=== PATIENT | female | born 1955 | race Caucasian/White ===

== ENCOUNTER 2019-12-03 17:58 | Inpatient (IN) | payer MEDICARE ==
--- NOTE | 2019-12-03 19:04 | RAD ---
RIGHT WRIST THREE VIEW: History: Injury, fall. Comparison: None. FINDINGS: Intraarticular radius fracture with mild dorsal angulation and impaction. Mild widening at the scapho lunate interval. IMPRESSION: Mildly dorsally angulated and impacted intraarticular distal radius fracture. POS: HOME
--- NOTE | 2019-12-03 20:06 | CT ---
CT BRAIN WITHOUT CONTRAST: History: Tripped and fell. Comparison: None FINDINGS: Relatively large right forehead soft tissue contusion and hematoma. There is a trace subdural hematom a along the right tentorium. No infarct. No midline shift. No mass effect. IMPRESSION: Relatively large right forehead soft tissue contusion with small right tentorium subdural hematoma. Code CR. Emergency Department. Dr. Quinonez notified of findings via telephone at 8:02 p.m. POS: HOME
[2019-12-03 20:41] LABS: #Basophils 0.1 thou/uL (0.0-0.2); #Eosinphils 0.1 thou/uL (0.0-0.7); #Lymphocytes 1.8 thou/uL (1.20-3.40); #Monocytes 0.8 thou/uL (0.11-0.59); #Neutrophils 11.4 thou/uL (1.40-6.50); %Basophils 0.5 % (0.0-1.0); %Eosinophils 0.6 % (0.0-10.0); %Lymphocytes 12.7 % (21.0-51.0); %Monocytes 5.6 % (0.0-10.0); %Neutrophils 80.6 % (42.0-75.0); Hemoglobin 14.7 g/dL (12.0-16.0); Mean Corpuscular HGB CONC 33.6 g/dL (32.0-36.0); Mean Corpuscular Hemoglobin 28.8 pg (27.0-31.0); Mean Corpuscular Volume 85.7 fL (78.0-98.0); Mean Platelet Volume 8.8 fL (7.4-10.4); Platelet Count 221 thou/uL (130-400); RBC Distribution Width 13.4 % (11.5-14.5); White Blood Cell (WBC) Count 14.1 thou/uL (4.8-10.8)
[2019-12-03 20:47] LABS: INR-International Normal Ratio 0.9
[2019-12-03] MEDS ORDERED: Fentanyl 100 MCG/2 ML VIAL ONE ×2 (20:48→22:18)
[2019-12-03] MEDS ORDERED: hydrALAZINE 20 MG/ML VIAL SLOW IVP PRN ×2 (21:00→23:08)
[2019-12-03] MEDS ORDERED: Ondansetron PF 4 MG/2 ML Vial IVP PRN ×2 (21:00→23:08)
[2019-12-03] MEDS ORDERED: Losartan 25 MG TAB PO SCH (21:00)
[2019-12-03] MEDS ORDERED: Famotidine/PF 20 mg/2ml Vial SLOW IVP SCH (21:00)
[2019-12-03] MEDS ORDERED: Dextrose 5% in Water 1,000 ML IV PRN ×2 (21:00→23:07)
[2019-12-03] MEDS ORDERED: Dextrose 50% Abboject 50 ML SYRINGE SLOW IVP PRN ×2 (21:00→23:07)
[2019-12-03] MEDS ORDERED: Morphine 4 MG/ML VIAL SLOW IVP PRN ×2 (21:00→22:58)
[2019-12-03 21:02] LABS: ALT (SGPT) 20 U/L (8-55); AST (SGOT) 15 U/L (5-34); Albumin 4.2 g/dL (3.4-4.8); Alkaline Phosphatase 129 U/L (40-110); Anion Gap 15 mmol/L (10-20); BUN (Urea Nitrogen) 13 mg/dL (9.8-20.1); Bilirubin, Total 0.3 mg/dL (0.2-1.2); Calc. Creatinine Clearance 0 mL/min (70-130); Calcium 9.2 mg/dL (7.8-10.44); Carbon Dioxide 27 mmol/L (23-31); Chloride 102 mmol/L (98-107); Estimated GFR-MDRD 80; Globulin 3.3 g/dL (2.4-3.5); Glucose 149 mg/dL (80-115); Magnesium 1.9 mg/dL (1.6-2.6); Phosphorus 3.2 mg/dL (2.3-4.7); Protein, Total 7.5 g/dL (6.0-8.3); Sodium 140 mmol/L (136-145)
[2019-12-03] MEDS ORDERED: traMADol HCl 50 MG TAB PO PRN ×4 (21:03→22:54)
[2019-12-03 21:05] LABS: Bacteria/HPF None Seen HPF (None Seen); Bilirubin Negative (Negative); Blood, Urine Negative (Negative); Clarity Clear (Clear); Glucose, Urine (Dipstick) 300 mg/dL (Negative); Leukocyte 25 Leu/uL (Negative); Nitrite Negative (Negative); Protein, Urine (Dipstick) Negative (Neg-Trace); RBC/HPF 0-3 HPF (0-3); Squamous Epithelial None Seen HPF (0-3); Urobilinogen Normal mg/dL (Less than 2); WBC/HPF 0-3 HPF (0-3)
[2019-12-03] MEDS ORDERED: Ondansetron PF 4 MG/2 ML Vial ONE (22:18)
[2019-12-03] MEDS ORDERED: Insulin Regular 300 UNITS/3 ML VIAL SC PRN ×2 (22:44)
[2019-12-03] MEDS ORDERED: Cyclobenzaprine 10 MG TAB PO PRN (22:54)
--- NOTE | 2019-12-03 23:30 | HP ---
TRAUMA SURGEON: Dr. Monroy. CONSULTING PHYSICIANS: Dr. Sanders of Orthopedic surgery and Dr. Verdin of Neurosurgery. HISTORY OF PRESENT ILLNESS: The patient is a 64-year-old female who presented to the Emergency Department after a mechanical fall down one step. She denies loss of consciousness, and she takes aspirin daily. She reported she missed a step and fell forward. She has a hematoma on the right side of her face just above the eye. She denies numbness and tingling in her bilateral upper and lower extremity. She is complaining of pain also at her right wrist. There is deformity there. REVIEW OF SYSTEMS: All additional 10-point review of systems negative except as indicated above. 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 PAST SURGICAL HISTORY: Right knee surgery x5, C-spine surgery, partial colectomy due to diverticular disease, breast reduction, and hysterectomy. SOCIAL HISTORY: The patient lives at home alone. She occasionally uses a walker or a cane to get around. She denies tobacco, drug, and alcohol use. MEDICATIONS: 1. Gabapentin. 2. Lorazepam. 3. Lexapro. 4. Diltiazem. 5. Zanaflex. 6. Tramadol. 7. Losartan. ALLERGIES: PENICILLIN, IMITREX, AND MORPHINE. PHYSICAL EXAMINATION: VITAL SIGNS: Temperature 98.9, pulse 82, respirations 16, oxygen saturation 98% on room air, and blood pressure 142/89. PRIMARY SURVEY: Airway intact. Adequate breath sounds bilaterally. 2+ pulses in the bilateral radials, femorals, and DPs. GCS 15. Gross motor and sensation intact. The patient has deformity over the right breast. No bruising or lacerations noted. She also does have a large hematoma over the right eye. SECONDARY SURVEY: HEAD: Normocephalic. She does have a large hematoma over the right eye. No palpable skull deformity. EYES: Pupils 3-2, equal, round, reactive to light bilaterally. No changes in her vision. ENT: No hemotympanum. No epistaxis. No septal hematoma. Midface stable to manipulation. No blood in the oropharynx. Dentition is intact. No anterior neck injury/crepitus/tenderness. C-SPINE: No step-offs or deformities. Nontender. No crepitus. No abrasions or ecchymosis. Equal chest movement. ABDOMEN: Soft, nontender, nondistended. PELVIS: Stable to palpation. No abrasions or ecchymosis. RECTAL: Deferred. GENITOURINARY: Deferred. EXTREMITIES: She has swelling over the right wrist. No abrasions or ecchymosis noted. BACK/SPINE: No step-offs, deformities, or tenderness to palpation of thoracic or lumbar spine. No abrasions or ecchymosis noted. NEUROLOGIC: 5/5 strength in bilateral [employer], plantar flexion, and dorsiflexion. Gross normal sensation x4 extremities. LABORATORY FINDINGS: White count 14.1, hemoglobin 14.7, hematocrit 43.7, and platelets 222. INR 0.9. Sodium 140, potassium 4.0, chloride 102, bicarb 27, BUN 13, creatinine 0.73, glucose 149, phosphorus 3.2, and magnesium 1.9. UA is negative. DIAGNOSTIC FINDINGS: X-ray of the right wrist demonstrates mildly dorsally angulated and impacted intra-articular distal radius fracture. CT scan of the brain demonstrates relatively large right frontal soft tissue contusion and small right tentorial subdural hematoma. ASSESSMENT: 1. Status post mechanical fall from standing. 2. Right radius fracture, non-operative. 3. Right subdural hematoma, GCS 15. 4. History of supraventricular tachycardia, diabetes, fibromyalgia, cyst on C-spine, depression, anxiety, diabetes, and chronic pain. PLAN: The patient will be admitted to the Trauma Service. She will go to the OR. Her injuries are non-operative at this time. We will complete neuro-checks per the recommendations of Neurosurgery which is q.[address] scan in the morning, unless she has a decline in her GCS, closely monitor vital signs, as well as mentation. Dr. Sanders to see in the morning. This patient will be discussed with Dr. Monroy after this dictation. Job ID: [id number]
[2019-12-03] MEDS ORDERED: Atorvastatin Calcium 20 MG TAB PO SCH (23:44)
[2019-12-03] MEDS ORDERED: Acetaminophen 500 MG TAB PO SCH ×2 (23:59)
[2019-12-04] MEDS: Losartan 25 MG TAB PO SCH (00:06)
[2019-12-04] MEDS ORDERED: Escitalopram Oxalate 10 mg Tablet PO SCH ×2 (00:15→21:00)
[2019-12-04 02:39] VITALS: BMI 31.6
[2019-12-04] MEDS ORDERED: Acetaminophen/Codeine 30-300mg Tablet PO PRN (03:21)
[2019-12-04] MEDS: Acetaminophen/Codeine 30-300mg Tablet PO PRN ×2 (04:03→11:21)
[2019-12-04] MEDS ORDERED: Fentanyl 100 MCG/2 ML VIAL SLOW IVP SCH (05:00)
[2019-12-04] MEDS: Acetaminophen 325 MG TAB PO SCH ×2 (05:11→13:20)
[2019-12-04 05:53] LABS: #Basophils 0.1 thou/uL (0.0-0.2); #Lymphocytes 2.1 thou/uL (1.20-3.40); #Monocytes 0.9 thou/uL (0.11-0.59); #Neutrophils 8.5 thou/uL (1.40-6.50); %Basophils 0.5 % (0.0-1.0); %Eosinophils 0.4 % (0.0-10.0); %Lymphocytes 18.3 % (21.0-51.0); %Neutrophils 72.8 % (42.0-75.0); Hemoglobin 13.6 g/dL (12.0-16.0); Mean Corpuscular HGB CONC 33.4 g/dL (32.0-36.0); Mean Corpuscular Hemoglobin 28.5 pg (27.0-31.0); Mean Corpuscular Volume 85.4 fL (78.0-98.0); Mean Platelet Volume 8.9 fL (7.4-10.4); Platelet Count 219 thou/uL (130-400); RBC Distribution Width 13.5 % (11.5-14.5); Red Blood Cell (RBC) Count 4.75 mill/uL (4.20-5.40); White Blood Cell (WBC) Count 11.7 thou/uL (4.8-10.8)
[2019-12-04 06:18] LABS: Anion Gap 14 mmol/L (10-20); BUN (Urea Nitrogen) 14 mg/dL (9.8-20.1); Calc. Creatinine Clearance 120 mL/min (70-130); Calcium 8.9 mg/dL (7.8-10.44); Carbon Dioxide 26 mmol/L (23-31); Chloride 103 mmol/L (98-107); Estimated GFR-MDRD 88; Glucose 130 mg/dL (80-115); Magnesium 1.8 mg/dL (1.6-2.6); Phosphorus 2.9 mg/dL (2.3-4.7); Potassium 3.5 mmol/L (3.5-5.1); Sodium 139 mmol/L (136-145)
[2019-12-04] MEDS: Senokot S 8.6-50 MG TAB PO SCH ×2 (08:27→21:21)
[2019-12-04] MEDS: Gabapentin 300 MG CAP PO SCH ×2 (08:27→21:22)
[2019-12-04] MEDS: Famotidine/PF 20 mg/2ml Vial SLOW IVP SCH ×2 (08:27→21:22)
[2019-12-04] MEDS: Polyethylene Glycol 3350 17 GM Packet PO SCH (08:27)
[2019-12-04] MEDS ORDERED: Polyethylene Glycol 3350 17 GM Packet PO SCH (09:00)
[2019-12-04] MEDS ORDERED: Gabapentin 300 MG CAP PO SCH (09:00)
[2019-12-04] MEDS ORDERED: Senokot S 8.6-50 MG TAB PO SCH (09:00)
--- NOTE | 2019-12-04 09:27 | CT ---
PRELIMINARY REPORT/[facility]/EMERGENCY AFTER HOURS PROCEDURE EXAM: CT Head Without Intravenous Contrast. CLINICAL HISTORY: F/U [facility] COMPARISON: CT - CT BRAIN WO CON - 12/03/2019 07:50 PM CDT FINDINGS: BRAIN: Stable asymmetric hyperattenuation along the right tentorium, suspicious for acute extra-axial /subdural hematoma. No CT evidence of acute infarct in a large vascular territory. Nonspecific white matter hypoattenuation suggesting chronic age-related small vessel changes. Atherosclerotic calcifications at the skull base. No midline shift. VENTRICLES: Prominent ventricles and cortical sulci in keeping with age-related involution. SINUSES AND MASTOIDS: Moderate thickening/fluid in the mastoid air cells. Mild paranasal sinus mucosa l thickening. SOFT TISSUES: Large right frontal scalp hematoma. BONES: No depressed calvarial fracture. IMPRESSION: Stable asymmetric hyperattenuation along the right tentorium, suspicious for acute extra- axial/subdural hematoma. ELECTRONICALLY SIGNED BY: Bony Muhammad MD December 04, 2019 5:34:39 AM CDT FINAL REPORT EMERGENT AFTER HOURS CT OF THE BRAIN WITHOUT CONTRAST: COMPARISON: 12/03/2019. FINDINGS/IMPRESSION: I agree with the findings and impression given in the preliminary report per [facility] physici an. There is stable asymmetric hyperdensity along the right aspect of the tentorium which may repres ent a small amount of subdural hemorrhage.
--- NOTE | 2019-12-04 09:33 | CON ---
DATE OF CONSULTATION: HISTORY OF PRESENT ILLNESS: Ms. Yissel Goodman was admitted overnight following a fall at a house that she was viewing to potentially purchase. She states she just missed the step. She was walking down the stairs and struck her face, broke her wrist. Neurosurgery was consulted for CT scan of the brain that revealed a right-sided subdural hematoma overlying the right side of the tentorium cerebelli. There was no mass effect to surrounding brain parenchyma or any midline shift or signs of increased intracranial pressure. Repeat CT scan this morning shows persistence of subdural, but no expansion; though, this morning she reports some headache. She has significant periorbital edema and bruising secondary to blunt trauma to that area, but otherwise has no obvious neurologic findings. She moves the left upper extremity and bilateral lower extremities. The speech is uninhibited. Extraocular movements were intact. She was having some significant postconcussive symptoms yesterday including nausea, but these seemed to be resolving. At this point, the patient is able to advance diet as tolerated directed by primary team. Follow up with Neurosurgery in 4 to 6 weeks with repeat head CT at that time. Job ID: [id number]
[2019-12-04] MEDS: Lorazepam 1 MG TAB PO SCH (11:21)
[2019-12-04] MEDS ORDERED: traMADol HCl 50 MG TAB PO PRN (14:03)
[2019-12-04] MEDS: traMADol HCl 50 MG TAB PO PRN ×2 (14:10→21:22)
[2019-12-04] MEDS ORDERED: Zolpidem Tartrate 5 MG TAB PO PRN (14:28)
[2019-12-04] MEDS ORDERED: Acetaminophen 500 MG TAB PO SCH (18:45)
[2019-12-04] MEDS ORDERED: tiZANidine HCl 4 MG TAB PO SCH (21:00)
[2019-12-04] MEDS ORDERED: Atorvastatin Calcium 20 MG TAB PO SCH (21:00)
[2019-12-04] MEDS ORDERED: Prazosin HCl 1 MG CAP PO SCH (21:00)
[2019-12-04] MEDS ORDERED: Losartan 25 MG TAB PO SCH (21:00)
[2019-12-04] MEDS ORDERED: Lorazepam 1 MG TAB PO SCH (21:00)
[2019-12-04] MEDS ORDERED: GABAPENTIN PO SCH (21:00)
--- NOTE | 2019-12-04 21:16 | PRG ---
DATE OF SERVICE: 12/04/2019 SUBJECTIVE: The patient is currently on the surgical floor. She was admitted last night, status post ground level fall which she sustained a distal radius fracture that is being treated nonoperatively and a right subdural hematoma with a presenting [place] Coma Scale of 15. The patient has a history of fibromyalgia, chronic pain, SVT, diabetes, and depression. Overnight, the patient had no issues. This morning, her repeat head CT showed improvement/resolving subdural hematoma. Her chief complaint currently is her right upper extremity pain. She is tolerating a diet. PHYSICAL EXAMINATION: VITAL SIGNS: Temperature is 97.9, heart rate 78, blood pressure 134/81, respirations 18, and oxygen saturation 94% on room air. GENERAL: The patient is resting comfortably in bed. She has a sling and splint on her right upper extremity. She is alert and oriented. [place] Coma Scale is 15. HEENT: The patient has contusion and periorbital ecchymosis of her right eye. LUNGS: Clear to auscultation bilaterally. HEART: Regular rate and rhythm. ABDOMEN: Soft, flat, and nontender with active bowel sounds. EXTREMITIES: Neurovascularly intact x4. LABORATORY FINDINGS: White blood cell count 11.7, hemoglobin 13.6, hematocrit 40.6, platelets 219. Sodium 139, potassium 3.5, chloride 103, CO2 of 26, BUN 14, creatinine 0.67, glucose 130, magnesium 1.8, and phosphorus 2.9. RADIOGRAPHIC REPORTS: CT of the brain without contrast shows stable asymmetric hyperattenuation along the right tentorium suspicious for acute extra-axial/subdural hematoma. ASSESSMENT AND PLAN: 1. Status post ground level fall. 2. Status post right distal radius fracture, treated nonoperatively. 3. Right subdural hematoma, improving, [place] Coma Scale is 15. 4. History of supraventricular tachycardia, fibromyalgia, depression, anxiety, diabetes, and chronic pain. Plan will be to continue supportive care. We will make adjustments to her pain regimen and the patient will likely be discharged home tomorrow. We did offer discharge stay, but she felt that she needed to stay one night to make sure that her pain was controlled. Job ID: [id number]
--- NOTE | 2019-12-04 22:26 | CON ---
DATE OF CONSULTATION: 12/04/2019 HISTORY OF PRESENT ILLNESS: Ms. Goodman is a 64-year-old female, who had a mechanical fall down one step. She fell onto her outstretched right wrist and also hit her head. The patient was brought to the emergency room. CT scan showed a subdural hematoma. X-rays of the right wrist show intra-articular fracture of the right distal radius, overall in good alignment. The patient was placed in a splint. She has no neurologic complaints in her right hand. PAST MEDICAL HISTORY: Medical illnesses; supraventricular tachycardia, diabetes, fibromyalgia, depression, anxiety, and chronic pain. PAST SURGICAL HISTORY: Right knee surgery x5, , partial colectomy, breast reduction, and hysterectomy. CURRENT MEDICATIONS: 1. Gabapentin. 2. Lorazepam. 3. Lexapro. 4. Diltiazem. 5. Zanaflex. 6. Tramadol. 7. Losartan. ALLERGIES: PENICILLIN, IMITREX, AND MORPHINE. PHYSICAL EXAMINATION: In the right wrist, the patient has swelling, tenderness over the right distal radius region. Skin is intact. Right hand is neurovascularly intact. IMAGING DATA: I reviewed the x-rays and agreed the patient has intra-articular fracture of the right distal radius. The intra-articular portion is mainly in the ulnar aspect of the distal radius, but overall the alignment is good. IMPRESSION: Intra-articular fracture of the right distal radius in satisfactory alignment. PLAN: I would not recommend surgery at this time for this fracture of the right radius. She should continue with the splint. Avoid any pushing, pulling or lifting with the right hand. Gentle range of motion of the digits is fine. She will follow up in my office in 2 weeks. Job ID: [id number]
[2019-12-05] MEDS: Acetaminophen 500 MG TAB PO SCH ×4 (00:45→18:39)
[2019-12-05] MEDS: Losartan 25 MG TAB PO SCH (01:07)
--- NOTE | 2019-12-05 02:28 | PRG ---
DATE OF SERVICE: 12/05/2019 SUBJECTIVE: Ms. Dey remained in surgical floor. The patient was seen on round this evening. The patient reports pain is well controlled. She tolerated with her regular diet. She voiced no concern. The patient's urine is adequate. OBJECTIVE: GENERAL: Currently, the patient sits on bed, comfortable with no acute respiratory distress. GCS 15. The patient is alert, awake, oriented x3. VITAL SIGNS: Stable. LUNGS: Clear bilaterally. HEART: Regular rate and rhythm. ABDOMEN: Soft, nontender. EXTREMITIES: Neurovascularly intact x4. ASSESSMENT: 1. Status post ground level fall. 2. Subdural hematoma stable, GCS 15. 3. Right wrist fracture, conservative treatment. 4. History of SVT, stable. 5. Fibromyalgia, depression, anxiety, diabetes, stable. PLAN: Plan will be continue supportive care. Continue pain control. Continue DVT prophylaxis. Anticipate discharge home tomorrow. Job ID: [id number]
[2019-12-05] MEDS: Senokot S 8.6-50 MG TAB PO SCH (08:48)
[2019-12-05] MEDS: Lorazepam 1 MG TAB PO SCH (08:49)
[2019-12-05] MEDS: Famotidine/PF 20 mg/2ml Vial SLOW IVP SCH (08:49)
[2019-12-05] MEDS: Gabapentin 300 MG CAP PO SCH (08:49)
[2019-12-05] MEDS: Polyethylene Glycol 3350 17 GM Packet PO SCH (08:49)
[2019-12-05] MEDS: traMADol HCl 50 MG TAB PO PRN ×2 (08:59→18:38)
[2019-12-05] MEDS ORDERED: Lorazepam 1 MG TAB PO SCH (13:30)
[2019-12-05 16:27] VITALS: BP 136/81; TEMP 98.3
--- NOTE | 2019-12-05 19:00 | PRG ---
DATE OF SERVICE: 12/05/2019 SUBJECTIVE: Ms. Goodman sustained a fracture of the right distal radius. She has been treated in a splint, which she is tolerating well. She has not had any increased pain in the wrist. No other additional complaints elsewhere. OBJECTIVE: The patient has been afebrile. Vital signs have been stable. Right hand has swelling and some bruising. She is neurovascularly intact. She is able to flex and extend all of her digits well. PLAN: The patient will continue with her splint. She is to avoid any pushing, pulling, or lifting with the right hand. She will follow up in my office in 2 weeks. Job ID: [id number]
== END 2019-12-05 19:48 | disposition home or self-care (01) | DRG 86 ==
LOC: ERS 17:58 → SJJU 21:00 → ERS 22:36
PROVIDERS: ADMIT Surgery; ATTEND Surgery
DX: S06.5X0A Traumatic subdural hemorrhage without loss of consciousness, initial encounter (principal); S52.571A Other intraarticular fracture of lower end of right radius, initial encounter for closed fracture; M79.7 Fibromyalgia; E11.9 Type 2 diabetes mellitus without complications; G89.29 Other chronic pain; F41.9 Anxiety disorder, unspecified; F32.9 Major depressive disorder, single episode, unspecified; W01.0XXA Fall on same level from slipping, tripping and stumbling without subsequent striking against object, initial encounter; R40.2362 Coma scale, best motor response, obeys commands, at arrival to emergency department; R40.2142 Coma scale, eyes open, spontaneous, at arrival to emergency department; R40.2252 Coma scale, best verbal response, oriented, at arrival to emergency department; S60.221A Contusion of right hand, initial encounter; S00.11XA Contusion of right eyelid and periocular area, initial encounter; Z90.49 Acquired absence of other specified parts of digestive tract; Z79.899 Other long term (current) drug therapy; Z88.5 Allergy status to narcotic agent; Z88.0 Allergy status to penicillin; Z88.8 Allergy status to other drugs, medicaments and biological substances; F07.81 Postconcussional syndrome
CPT/HCPCS: 29125; 36415; 36416; 70450; 80048; 80053; 81003; 81015; 83735; 84100; 85025; 85610; 96374; 96375; 96376; G0390; J1815; J2405; J3010; S0028